=== PATIENT | female | born 1995 | race Two or more races ===

== ENCOUNTER 2021-12-07 11:16 | Observation (INO) ==
--- NOTE | 2021-12-07 11:53 | History & Physical Report ---
Date of Service December 07, 2021 Assessment & Plan (1) Fall: Plan: 26 yo female 23 weeks 5 days WG presents for observation after sustaining a fall. -pt feeling well, physical examination unremarkable, no signs of active bleeding -reassuring FHR/toco tracings -monitor for 4-6 hours, if stable can be discharged -f/u routine OB clinic (2) Supervision of normal intrauterine in primigravida: History of Present Illness Chief Complaint: Fall Primary Care Provider: NO PCP 26 yo female 23 weeks 5 days WG presents for observation after sustaining a fall. She was at work closing a gate and when she turned around to walk towards her car she slipped on a patch of mud forward onto her stomach. She was m inimally able to break her fall with her hands but denies hitting her head. Did not lose consciousness. Denies pain after fall aside from some scrapes on her hands. Did not notice any abdominal bruising. Denies abdominal pain, nausea, vomiting, SOB, chest pain, palpitations. + movement before and after fall. Denies contractions. No vaginal bleeding or leakage of fluid. Tocodynamometry: no uterine contractions FHR: baseline ~140, +spontaneous accelerations, no decelerations, moderate variability Allergies Allergy/AdvReac Type Severity Reaction Status Date / Time No Known Allergies Allergy Verified 11/09/21 16:18 Home Medications Medication Instructions Recorded Confirmed Type albuterol sulfate 90 mcg/actuation 2 puff INHALATION Q6H PRN 10/31/19 11/09/21 History aerosol inhaler calcium carbonate [Tums] PO 08/04/21 11/09/21 History prenat.vits,jeannine,[id number] 1 tab PO DAILY 08/04/21 11/09/21 History simethicone [Mylanta Gas] PO 08/04/21 11/09/21 History doxylamine 10 mg-pyridoxine (vit 1 tab PO DAILY #30 tab 08/10/21 11/09/21 Rx B6) 10 mg tablet,delayed release (Diclegis) ondansetron HCl 4 mg tablet 4 mg PO Q6H PRN #30 tab 08/10/21 11/09/21 Rx Patient History Medical History (Updated 12/07/21 @ 13:16 by Keon Mancera DO) Anemia Asthma GERD (gastroesophageal reflux disease) Umbilical hernia Family History (Updated 08/04/21 @ 14:40 by Lakeshia Guerrero) Father Coronary heart disease COPD (chronic obstructive pulmonary disease) Grandmother Heart disease Grandfather (Paternal) Cancer Social History (Updated 08/04/21 @ 14:41 by Lakeshia Guerrero) Smoking Status: Never smoker Hx Alcohol Use: No Hx Substance Use: No Preferred Language: French marital status: marital status details: [place] (30) [phone] Current Living Situation: Spouse Current Living Situation Comment: lives with spouse, 2 cats, 1 dragon, spouse to change litter. current occupational status: unemployed Feels Safe at Home: Yes Review of Systems All systems reviewed & are unremarkable except as noted in HPI & below Physical Exam Physical Exam: General: Alert, oriented, no acute distress Cardiac: Regular rate and rhythm, normal S1, S2. No murmurs appreciated. Respiratory: Clear to auscultation b/l with good air flow entry, symmetric chest rise and fall. No wheezes or crackles. No increased work of breathing or accessory muscle use Abdomen: Gravid, soft, nontender. No guarding or CVA tenderness. No ecchymosis noted. Skin: Mild new scrapes on bilateral palms Extremities: Warm, dry, well-perfused with capillary refill <2s b/l. No lower extremity edema, erythema or swelling. Negative Rodolfo's sign b/l. Results & Data ([facility]) Vital Signs (Past 12 Hours) Vital Signs Pulse BP 12/07/21 11:26 70 127/63 Supervising Physician Co-Signing Physician Notes Resident Physician Supervision Note: I interviewed and examined the patient. Discussed with Dr. Mancera and agree with findings and plan as documented in the note. Any exceptions or clarifications are listed here: iup at 23 5/7 weeks with fall with direct abd trauma. Patient notes no pain, cramping of bleeding. Rh+. Given periviable, plan to monitor until 6 hours s/p fall. No evidence of trauma to the abdomen. fht reassuring for 23+ weeks with baseline 145 with mod variability, small accels, no decels. Documented By: Simin Espinosa MD, FACOG Resident Activity Tracking Resident Involvement: Resident Care Provided Care Provided: OB Delivery
--- NOTE | 2021-12-08 14:33 | Discharge Summary ---
Date of Service December 08, 2021 Admission HPI Per Admitting Provider 26 yo female 23 weeks 5 days WG presents for observation after sustaining a fall. She was at work closing a gate and when she turned around to walk towards her car she slipped on a patch of mud forward onto her stomach. She was minimally able to break her fall with her hands but denies hitting her head. Did not lose consciousness. Denies pain after fall aside from some scrapes on her hands. Did not notice any abdominal bruising. Denies abdominal pain, nausea, vomiting, SOB, chest pain, palpitations. + movement before and after fall. Denies contractions. No vaginal bleeding or leakage of fluid. Tocodynamometry: no uterine contractions FHR: baseline ~140, +spontaneous accelerations, no decelerations, moderate variability Hospital Course (1) Fall: (2) Supervision of normal intrauterine in primigravida: Patient was monitored up and until 6 hours s/p fall. heart tones remained reassuring with good variability and even small accels. the patient had no bleeding, cramping or pain noted. She is Rh+. Patient was reasurred and d/c to home. Coding Level of Care Code D/C DAY MANAGEMENT <30 MINS Diagnoses Fall W19.XXXA Supervision of normal intrauterine in primigravida Z34.00
== END 2021-12-07 15:10 | disposition home or self-care (01) ==
LOC: OPB 11:16 → 4S1 11:18 → INTOOBSV 11:41 → 4S1 11:41

== ENCOUNTER 2022-04-03 18:43 | Inpatient (IN) ==
[2022-04-03] MEDS ORDERED: LIDOCAINE 1% LOCAL 20 ML VIAL INFIL PRN (20:01)
[2022-04-03] MEDS ORDERED: OXYTOCIN 30 UNITS/500 ML BAG IV PRN (20:01)
[2022-04-03 20:33] LABS: Hematocrit (blood only) 34.2 % (34.1-44.9); Hemoglobin 11.9 g/dl (12.0-16.0); Mean Corpuscular Hgb Conc 34.8 g/dL (32.0-36.0); Mean Corpuscular Volume 83.4 fL (80.0-100.0); Platelet Count 278 K/uL (130-400); RDW Coefficient of Variation 13.2 % (11.5-14.5); RDW Standard Deviation 39.4 fL (36.4-46.3); White Blood Count 11.21 K/ul (4.8-10.8)
--- NOTE | 2022-04-03 20:41 | History & Physical Report ---
Date of Service April 03, 2022 Assessment & Plan (1) Gestational diabetes: Plan: Patient came in for labor check while here membranes ruptured spontaneously the patient is closed although christine every 3 to 4 minutes records reviewed patient will be admitted Admission and Anticipated Discharge Date Admission Date: April 03, 2022 History of Present Illness Primary Care Provider: NO PCP Estimated Delivery Date Method Current WG Current Estimate 03/31/22 Ultrasound #1 40w 0d Other Estimates 03/25/22 LMP (Certain) 40w 6d LMP: 06/18/21 : 1 Full term: 0 Premature: 0 Total Number of Induced Abortions: 0 Total Number of Spontaneous Abortions: 0 Ectopics: 0 Multiple births: 0 Number of Living Children: 0 and Delivery Plans Covid Vaccine #1 09/11/20 (J&J) COVID+ 06/2022, rec'd MABs Flu shot given 03/10/22 SB Obesity BMI 35-39 At Beginning of *Growth US at 32wks--38% *NSTs @ 36wks weekly Asthma - inhaler PRN Gestational Diabetes AC u/s's q 4 weeks Allergies Allergy/AdvReac Type Severity Reaction Status Date / Time No Known Allergies Allergy Verified 03/31/22 09:21 Home Medications Medication Instructions Recorded Confirmed Type albuterol sulfate 90 mcg/actuation 2 puff inhalation Q6H PRN 10/31/19 04/03/22 History aerosol inhaler Shortness Of Breath Or Wheezing prenat.vits,jeannine,[id number] 1 tab PO DAILY 08/04/21 04/03/22 History breast pump #1 ea 12/09/21 03/31/22 Rx acetone (urine) test (Ketone Urine #50 ea 02/06/22 03/31/22 Rx Test strips) blood sugar diagnostic (OneTouch #150 ea 02/06/22 03/31/22 Rx Verio test strips) lancets 33 gauge (OneTouch Delica #150 ea 02/06/22 03/31/22 Rx Lancets) omeprazole 20 mg tablet,delayed 20 mg PO DAILY 03/29/22 04/03/22 History release Patient History Medical History Anemia Asthma GERD (gastroesophageal reflux disease) Umbilical hernia Family History Father Coronary heart disease COPD (chronic obstructive pulmonary disease) Grandmother Heart disease Grandfather (Paternal) Cancer Social History Smoking Status: Never smoker Hx Alcohol Use: No Hx Substance Use: No Preferred Language: Urdu Communication Ability: Effective Sped Teacher Required: No Beliefs That Will Affect Care: None marital status: marital status details: [place] (30) [phone] Current Living Situation: Spouse Current Living Situation Comment: , 2 cats, 1 bearded dragon current occupational status: unemployed Other Information That Helps Us Care for You: No Feels Safe at Home: Yes Safety Concerns: Feels Safe At This Time Assistive Devices: Contacts and Glasses Results & Data ([facility]) Vital Signs (Past 12 Hours) Vital Signs Temp Pulse Resp BP 04/03/22 20:01 98.6 F 04/03/22 19:59 96 H 134/78 04/03/22 19:04 18 04/03/22 19:04 98.4 F 18 04/03/22 19:17 93 H 127/70 04/03/22 18:56 98.4 F Coding Level of Care Code None Diagnoses Gestational diabetes O24.419
[2022-04-03] MEDS ORDERED: BUTORPHANOL TARTRATE 1 MG/ML VIAL IV PRN (23:54)
[2022-04-04] MEDS ORDERED: OXYTOCIN 30 UNITS/500 ML BAG IV PRN ×2 (00:01→15:53)
[2022-04-04] MEDS: LACTATED RINGER'S 1,000 ML IV PRN ×4 (00:24→14:00)
[2022-04-04] MEDS ORDERED: ePHEDrine sulfate 50 MG/ML AMP ONE (01:19)
[2022-04-04] MEDS ORDERED: SODIUM CHLORIDE 0.9% INJ 10 ML VIAL ONE (01:20)
[2022-04-04] MEDS ORDERED: fentaNYL 2MCG/ML ROPIVACAINE 1.25MG/ML 100 ML BAG EPI ONE (01:20)
[2022-04-04] MEDS ORDERED: fentaNYL citrate 100 MCG/2 ML VIAL ONE (01:20)
[2022-04-04] MEDS ORDERED: BUPIVACAINE 0.25% 30 ML VIAL ONE (01:20)
[2022-04-04] MEDS ORDERED: LIDOCAINE 2%/EPINEPHRINE 1:200,000 20 ML SDV ONE (01:20)
[2022-04-04] MEDS ORDERED: ePHEDrine sulfate 50 MG/ML AMP IV PRN (01:23)
[2022-04-04] MEDS ORDERED: diphenhydrAMINE 50 MG/ML VIAL IV PRN (01:23)
[2022-04-04] MEDS ORDERED: ONDANSETRON INJ 2 MG/ML 2 ML VIAL IV PRN (01:23)
[2022-04-04] MEDS ORDERED: NALOXONE HCL 0.4 MG/1 ML VIAL/CARP IV PRN (01:23)
[2022-04-04] MEDS ORDERED: NALOXONE HCL 1 MG in SODIUM CHLORIDE 0.9% 1000ML 1,000 ML IV PRN (01:23)
[2022-04-04] MEDS ORDERED: NALBUPHINE HCL INJ 10 MG/ML AMP IV PRN (01:23)
--- NOTE | 2022-04-04 01:23 | Anesthesiology Consultation ---
Date of Service April 04, 2022 Assessment & Plan ASA ASA3 Proposed Anesthesia Anesthesia Type: Labor Epidural Risk / Benefits Reviewed With: PT / POA / Parent / Guardian, Accepts Plan and Informed Consent Obtained History Height/Weight Height: 5 ft 7 in Weight: 117.118 kg Allergies Allergy/AdvReac Type Severity Reaction Status Date / Time No Known Allergies Allergy Verified 03/31/22 09:21 Medications Home Medications Medication Instructions Recorded Confirmed Last Taken albuterol sulfate 90 mcg/actuation 2 puff inhalation Q6H PRN 10/31/19 04/03/22 Unknown aerosol inhaler Shortness Of Breath Or Wheezing prenat.vits,jeannine,[id number] 1 tab PO DAILY 08/04/21 04/03/22 04/03/22 08:00 breast pump #1 ea 12/09/21 03/31/22 Unknown acetone (urine) test (Ketone Urine #50 ea 02/06/22 03/31/22 Unknown Test strips) blood sugar diagnostic (OneTouch #150 ea 02/06/22 03/31/22 Unknown Verio test strips) lancets 33 gauge (OneTouch Delica #150 ea 02/06/22 03/31/22 Unknown Lancets) omeprazole 20 mg tablet,delayed 20 mg PO DAILY 03/29/22 04/03/22 04/03/22 08:00 release Active Medications Generic Name Dose Route Start Last Admin Trade Name Freq PRN Reason Stop Dose Admin Butorphanol Tartrate 1 mg 04/03/22 23:54 04/04/22 01:01 Butorphanol Tartrate 1 Mg/Ml Vial IV 05/03/22 23:53 1 mg Q2HWA PRN Administration Pain Lactated Ringer's 1,000 mls @ 125 mls/hr 04/03/22 20:01 04/04/22 02:00 Lr IV 04/05/22 20:00 125 mls/hr .Q8H PRN Titration L&D Protocol Protocol Oxytocin 30 units in 500 mls @ 3 mls/hr 04/04/22 00:01 04/04/22 02:03 Pitocin IV 04/06/22 00:00 0.18 units/hr .Q24H PRN 3 mls/hr Labor Induction/Augmentation Titration Protocol 0.18 UNITS/HR Past Medical History Medical History Anemia Asthma GERD (gastroesophageal reflux disease) Umbilical hernia Exercise / Class Metabolic Activity II 4-5 Yardwork/Stairs/Walk up hill Past Family History Family History Father Coronary heart disease COPD (chronic obstructive pulmonary disease) Grandmother Heart disease Grandfather (Paternal) Cancer Past Anesthesia History No Hx of Anesthesia Complications and No Family Hx of Anesthesia Complications History of PONV No Hx of PONV and No Hx of Motion Sickness Social History Smoking Status: Never smoker Hx Alcohol Use: No Hx Substance Use: No substance use type: does not use Review of Systems denies fever/cough/ colds/ chest pain/ SOB/ TIM denies TIM Physical Exam Vital Signs Last Vital Signs Temp 36.8 C 04/03/22 23:50 Pulse 85 04/04/22 02:13 Resp 18 04/03/22 23:50 BP 115/58 L 04/04/22 02:13 Pulse Ox 97 04/04/22 02:12 ENMT Mouth: no TMJ abnormality and no dentition abnormality Thyromental Distance: > or= 3.5 Finger Breadths Mallampati Class: II Neck neck extension not limited Respiratory normal respiratory effort; no respiratory distress Auscultation: lungs clear to auscultation bilaterally Cardiovascular Rate/Rhythm: regular rate and regular rhythm Neurologic moves all extremities Psychiatric Orientation: alert and oriented x 3 Testing Laboratory Results 04/03/22 20:17
--- NOTE | 2022-04-04 06:10 | Labor Progress Brief Note ---
Date of Service April 04, 2022 Patient requested epidural she is 4 cm we initially tried Pitocin as she had spontaneously ruptured however the baby did not tolerate this early dose of Pitocin. We took a break from this and the tracing was category 1 because her cervix is 4 cm over 2 checks although distended 90% we will restart Pitocin low- dose Assessment & Plan Admission and Anticipated Discharge Date Admission Date: April 03, 2022 Results & Data ([facility]) Vital Signs (Past 12 Hours) Vital Signs Temp Pulse Resp BP Pulse Ox 04/04/22 04:02 98.2 F 16 04/03/22 22:50 98.2 F 18 04/04/22 05:59 16 04/04/22 05:59 98.1 F 16 04/04/22 06:03 61 127/75 04/04/22 06:02 61 99 04/04/22 05:57 74 99 04/04/22 05:52 72 100 04/04/22 05:47 99 04/04/22 05:47 65 04/04/22 05:47 69 141/69 H 04/04/22 05:42 76 99 04/04/22 05:37 55 L 97 04/04/22 05:32 97 04/04/22 05:32 61 04/04/22 05:32 60 135/68 04/04/22 01:54 18 04/04/22 01:54 18 04/04/22 02:15 16 04/04/22 02:15 16 04/04/22 02:45 16 04/04/22 02:45 16 04/04/22 03:15 16 04/04/22 03:15 16 04/04/22 03:45 16 04/04/22 03:45 16 04/04/22 04:15 16 04/04/22 04:15 16 04/04/22 04:45 16 04/04/22 04:45 16 04/04/22 05:15 16 04/04/22 05:15 16 04/04/22 05:27 54 L 97 04/04/22 05:22 63 97 04/04/22 05:17 54 L 97 04/04/22 05:18 52 L 136/69 04/04/22 05:12 60 98 04/04/22 05:07 60 98 04/04/22 05:02 55 L 97 04/04/22 05:03 54 L 134/63 04/04/22 04:57 60 97 04/04/22 04:52 54 L 98 04/04/22 04:47 98 04/04/22 04:47 63 04/04/22 04:47 60 131/67 04/04/22 04:42 59 L 97 04/04/22 04:37 62 96 04/04/22 04:32 97 04/04/22 04:32 57 L 04/04/22 04:32 57 L 133/66 04/04/22 04:27 67 96 04/04/22 04:22 66 96 04/04/22 04:17 57 L 130/64 96 04/04/22 04:12 59 L 97 04/04/22 04:07 65 96 04/04/22 04:03 56 L 131/66 04/04/22 04:02 56 L 96 04/04/22 03:57 65 97 04/04/22 03:52 68 99 04/04/22 03:47 96 04/04/22 03:47 99 H 04/04/22 03:47 67 126/63 04/04/22 03:42 83 97 04/04/22 03:40 67 137/63 04/04/22 03:37 78 98 04/04/22 03:32 95 04/04/22 03:32 61 04/04/22 03:32 64 97/48 L 04/04/22 03:27 61 95 04/04/22 03:22 58 L 96 04/04/22 03:21 63 94 04/04/22 03:19 66 91/44 L 04/04/22 03:17 75 97 04/04/22 03:12 64 96 04/04/22 03:07 65 97 04/04/22 03:02 71 98/53 L 97 04/04/22 02:26 16 04/04/22 02:26 16 04/04/22 01:59 16 04/04/22 01:59 16 04/04/22 02:57 68 96 04/04/22 02:52 71 96 04/04/22 02:47 98 04/04/22 02:47 68 04/04/22 02:47 66 131/66 04/04/22 02:01 16 04/04/22 02:01 98.2 F 16 04/04/22 02:42 71 99 04/04/22 02:37 77 98 04/04/22 02:32 81 98 04/04/22 02:30 96 H 140/72 04/04/22 02:29 127 H 90 04/04/22 02:27 80 98 04/04/22 02:24 71 125/58 L 04/04/22 02:22 79 97 04/04/22 02:17 81 97 04/04/22 02:13 85 115/58 L 04/04/22 02:12 95 H 97 04/04/22 02:08 95 H 121/65 04/04/22 02:07 93 H 16 97 04/04/22 02:02 98 H 118/64 96 04/04/22 02:00 80 119/63 04/04/22 01:58 90 111/66 04/04/22 01:57 89 124/62 97 04/04/22 01:55 80 164/67 H 04/04/22 01:52 71 98 04/04/22 01:53 103 H 93 04/04/22 01:47 96 04/04/22 01:47 64 04/04/22 01:47 68 94 04/04/22 01:15 67 119/64 04/04/22 00:15 56 L 117/74 04/03/22 23:50 18 04/03/22 23:50 98.2 F 18 04/03/22 22:50 75 118/75 04/03/22 20:01 98.6 F 04/03/22 19:59 96 H 134/78 04/03/22 19:04 18 04/03/22 19:04 98.4 F 18 04/03/22 19:17 93 H 127/70 04/03/22 18:56 98.4 F Coding Level of Care Code None
[2022-04-04] MEDS: fentaNYL 2MCG/ML ROPIVACAINE 1.25MG/ML 100 ML BAG EPI PRN ×3 (09:05→14:20)
--- NOTE | 2022-04-04 12:42 | Labor Progress Brief Note ---
Date of Service April 04, 2022 Subjective Feeling some more pain on L side and back Assessment & Plan (1) PROM (premature rupture of membranes): Plan: 26 yo G1 at 40 4/7 wga admitted w/ prom VSS Fetus cat 2, reassuring, will reposition Labor - pit at 5, progression noted from last exam. Ok to continue augmentation with reassuring cat 2 [address] neg epid[address] in place Admission and Anticipated Discharge Date Admission Date: April 03, 2022 Physical Exam Genitourinary: Manual OB Exam: + cervical dilation 5 cm, + cervical effacement 90% and + station 0 OB Exam Monitor Tracing: + external FHT monitor used, + external uterine monitor used and + category II (140/mod/+accel/intermittent variables and early) Results & Data ([facility]) Vital Signs (Past 12 Hours) Vital Signs Temp Pulse Resp BP Pulse Ox 04/04/22 07:05 98.2 F 20 04/04/22 04:02 98.2 F 16 04/04/22 12:33 65 100 04/04/22 12:28 65 97 04/04/22 12:23 67 100 04/04/22 12:18 63 100 04/04/22 12:13 72 100 04/04/22 12:08 78 100 04/04/22 12:03 69 100 04/04/22 12:02 75 129/62 04/04/22 11:58 70 100 04/04/22 11:57 66 84 L 04/04/22 11:53 93 H 97 04/04/22 11:51 76 85 L 04/04/22 11:48 56 L 97 04/04/22 11:47 73 137/79 04/04/22 11:43 70 100 04/04/22 11:38 68 100 04/04/22 11:33 57 L 99 04/04/22 11:32 67 133/72 04/04/22 11:28 67 97 04/04/22 11:23 69 100 04/04/22 11:18 63 100 04/04/22 11:17 59 L 134/70 04/04/22 11:13 70 99 04/04/22 11:08 69 99 04/04/22 11:03 67 100 04/04/22 11:00 18 04/04/22 11:00 18 04/04/22 11:02 72 127/71 04/04/22 10:58 77 99 04/04/22 10:53 79 98 04/04/22 10:52 66 88 L 04/04/22 10:48 62 99 04/04/22 10:47 54 L 100/52 L 04/04/22 10:43 53 L 98 04/04/22 10:38 58 L 99 04/04/22 10:33 56 L 98 04/04/22 10:32 53 L 96/53 L 04/04/22 10:28 54 L 98 04/04/22 10:23 55 L 98 04/04/22 10:18 54 L 99/55 L 98 04/04/22 10:00 20 04/04/22 10:00 20 04/04/22 10:13 54 L 99 04/04/22 10:08 57 L 99 04/04/22 10:03 61 100 04/04/22 10:02 68 101/57 L 04/04/22 09:58 69 99 04/04/22 09:53 62 99 04/04/22 09:48 71 100 04/04/22 09:47 64 103/57 L 04/04/22 09:45 61 103/52 L 04/04/22 09:43 77 100 04/04/22 09:38 67 100 04/04/22 09:33 73 100 04/04/22 09:32 68 93 04/04/22 09:28 72 99 04/04/22 09:27 67 92 04/04/22 09:23 72 94 04/04/22 09:00 18 04/04/22 09:00 18 04/04/22 09:20 59 L 91 04/04/22 09:18 62 99 04/04/22 09:17 55 L 95/51 L 04/04/22 09:13 58 L 100 04/04/22 09:08 73 99 04/04/22 09:06 86 92 04/04/22 09:03 75 100 04/04/22 09:02 68 123/75 04/04/22 08:58 63 98 04/04/22 08:53 71 99 04/04/22 08:48 61 99 04/04/22 08:47 67 123/74 04/04/22 08:43 64 100 04/04/22 08:38 79 99 04/04/22 08:33 69 123/72 98 04/04/22 08:28 73 99 04/04/22 08:23 104 H 99 04/04/22 08:22 73 92 04/04/22 08:18 65 97 04/04/22 08:16 60 106/56 L 04/04/22 08:13 61 97 04/04/22 08:00 16 04/04/22 08:00 16 04/04/22 08:08 66 97 04/04/22 08:03 58 L 108/57 L 98 04/04/22 07:58 57 L 98 04/04/22 07:53 63 99 04/04/22 07:48 58 L 98 04/04/22 07:47 57 L 109/57 L 04/04/22 07:43 57 L 98 04/04/22 07:38 61 98 04/04/22 07:30 20 04/04/22 07:30 20 04/04/22 07:33 63 98 04/04/22 07:32 60 106/59 L 04/04/22 07:28 67 99 04/04/22 07:23 58 L 98 04/04/22 07:18 65 99 04/04/22 07:17 59 L 109/56 L 04/04/22 07:13 57 L 98 04/04/22 07:08 73 99 04/04/22 07:05 79 94 04/04/22 07:03 59 L 98 04/04/22 07:02 61 124/65 04/04/22 06:58 65 98 04/04/22 06:53 61 99 04/04/22 06:48 58 L 99 04/04/22 06:47 59 L 126/63 04/04/22 06:43 55 L 100 04/04/22 06:38 60 99 04/04/22 06:29 16 04/04/22 06:29 16 04/04/22 06:33 100 04/04/22 06:33 58 L 04/04/22 06:33 56 L 128/61 04/04/22 06:27 61 99 04/04/22 06:22 59 L 99 04/04/22 06:17 61 132/69 99 04/04/22 06:12 80 99 04/04/22 06:10 77 92 04/04/22 06:07 65 96 04/04/22 05:59 16 04/04/22 05:59 98.1 F 16 04/04/22 06:03 61 127/75 04/04/22 06:02 61 99 04/04/22 05:57 74 99 04/04/22 05:52 72 100 04/04/22 05:47 99 04/04/22 05:47 65 04/04/22 05:47 69 141/69 H 04/04/22 05:42 76 99 04/04/22 05:37 55 L 97 04/04/22 05:32 97 04/04/22 05:32 61 04/04/22 05:32 60 135/68 04/04/22 01:54 18 04/04/22 01:54 18 04/04/22 02:15 16 04/04/22 02:15 16 04/04/22 02:45 16 04/04/22 02:45 16 04/04/22 03:15 16 04/04/22 03:15 16 04/04/22 03:45 16 04/04/22 03:45 16 04/04/22 04:15 16 04/04/22 04:15 16 04/04/22 04:45 16 04/04/22 04:45 16 04/04/22 05:15 16 04/04/22 05:15 16 04/04/22 05:27 54 L 97 04/04/22 05:22 63 97 04/04/22 05:17 54 L 97 04/04/22 05:18 52 L 136/69 04/04/22 05:12 60 98 04/04/22 05:07 60 98 04/04/22 05:02 55 L 97 04/04/22 05:03 54 L 134/63 04/04/22 04:57 60 97 04/04/22 04:52 54 L 98 04/04/22 04:47 98 04/04/22 04:47 63 04/04/22 04:47 60 131/67 04/04/22 04:42 59 L 97 04/04/22 04:37 62 96 04/04/22 04:32 97 04/04/22 04:32 57 L 04/04/22 04:32 57 L 133/66 04/04/22 04:27 67 96 04/04/22 04:22 66 96 04/04/22 04:17 57 L 130/64 96 04/04/22 04:12 59 L 97 04/04/22 04:07 65 96 04/04/22 04:03 56 L 131/66 04/04/22 04:02 56 L 96 04/04/22 03:57 65 97 04/04/22 03:52 68 99 04/04/22 03:47 96 04/04/22 03:47 99 H 04/04/22 03:47 67 126/63 04/04/22 03:42 83 97 04/04/22 03:40 67 137/63 04/04/22 03:37 78 98 04/04/22 03:32 95 04/04/22 03:32 61 04/04/22 03:32 64 97/48 L 04/04/22 03:27 61 95 04/04/22 03:22 58 L 96 04/04/22 03:21 63 94 04/04/22 03:19 66 91/44 L 04/04/22 03:17 75 97 04/04/22 03:12 64 96 04/04/22 03:07 65 97 04/04/22 03:02 71 98/53 L 97 04/04/22 02:26 16 04/04/22 02:26 16 04/04/22 01:59 16 04/04/22 01:59 16 04/04/22 02:57 68 96 04/04/22 02:52 71 96 04/04/22 02:47 98 04/04/22 02:47 68 04/04/22 02:47 66 131/66 04/04/22 02:01 16 04/04/22 02:01 98.2 F 16 04/04/22 02:42 71 99 04/04/22 02:37 77 98 04/04/22 02:32 81 98 04/04/22 02:30 96 H 140/72 04/04/22 02:29 127 H 90 04/04/22 02:27 80 98 04/04/22 02:24 71 125/58 L 04/04/22 02:22 79 97 04/04/22 02:17 81 97 04/04/22 02:13 85 115/58 L 04/04/22 02:12 95 H 97 04/04/22 02:08 95 H 121/65 04/04/22 02:07 93 H 16 97 04/04/22 02:02 98 H 118/64 96 04/04/22 02:00 80 119/63 04/04/22 01:58 90 111/66 04/04/22 01:57 89 124/62 97 04/04/22 01:55 80 164/67 H 04/04/22 01:52 71 98 04/04/22 01:53 103 H 93 04/04/22 01:47 96 04/04/22 01:47 64 04/04/22 01:47 68 94 04/04/22 01:15 67 119/64 Coding Level of Care Code None Diagnoses PROM (premature rupture of membranes) O42.90
[2022-04-04] MEDS ORDERED: NURSING L&D Epidural Breakthrough Pain Update ONE (14:27)
[2022-04-04] MEDS ORDERED: HYDROCORTISONE ACETATE 25 MG SUPP PR PRN (15:53)
[2022-04-04] MEDS ORDERED: bisacodyL 10 MG SUPP PR PRN (15:53)
[2022-04-04] MEDS ORDERED: DIPHTHERIA/TETANUS/PERTUSSIS 0.5 ML SYR/VIAL IM ONE (15:53)
[2022-04-04] MEDS ORDERED: ACETAMINOPHEN 325 MG TAB PO PRN (15:53)
[2022-04-04] MEDS ORDERED: BENZOCAINE 20% AER SPR 82.5 GM CAN EXT PRN (15:53)
--- NOTE | 2022-04-04 15:59 | Delivery Summary ---
Vaginal Delivery Summary Date of Service April 04, 2022 Vaginal Delivery Summary [facility] PREOPERATIVE DIAGNOSIS: 1. Single intrauterine at 40 4/7 wga 2. SROM 3. Labor 4. A1GDM POSTOPERATIVE DIAGNOSIS: 1. Single intrauterine at 40 4/7 wga 2. SROM 3. Labor 4. A1GDM 5. Delivered PROCEDURE: 1. Normal spontaneous vaginal delivery. SURGEON: Caitlyn Rivers MD ANESTHESIA: Epidural. ESTIMATED BLOOD LOSS: 300 mL FLUIDS: Continuous LR. URINE OUTPUT: None. COMPLICATIONS: None. CONDITION: Stable. INDICATIONS: 26 yo G1 at 40 4/7 wga presented in labor this morning and had SROM shortly after arrival. She was started on pitocin and received an epidural for pain control. Pitocin did have to be stopped at one point due to decel but was able to be restarted. She continued to progress to complete and desired to push. FINDINGS: A viable female , weight pending with Apgars of 8 and 9 at 1 and 5 minutes respectively. SPECIMEN: Cord blood, placenta OPERATIVE REPORT: The patient progressed to 10 cm, 100% effaced and +2 station, pushed over intact perineum with anesthesia to deliver a viable female , weight and Apgars as above. Head of delivered in CARLIE position. No nuchal cord was present. Body and shoulders were delivered without difficulty. was delivered to maternal abdomen and nursing staff. Delayed cord clamping was performed for 60 seconds. Cord was clamped and cut. Cord blood was obtained. Placenta delivered spontaneously intact with 3-vessel cord. IV oxytocin and fundal massage were given for excellent hemostasis. Vagina, cervix, perineum, and placenta were inspected. Hemostatic abrasions were noted at left introitus and clitoris but not needed to be repaired. Sponge and needle counts correct x2. No sponges were left behind. Mother and stable in immediate period. [facility] Vaginal Delivery Charge Vaginal Delivery Codes: 74062 global code for the antepartum, delivery, and post- Delivery Type Details: [facility]
[2022-04-04] MEDS: IBUPROFEN 600 MG TAB PO PRN (17:24)
--- NOTE | 2022-04-04 17:38 | Anesthesia Procedure Note ---
Date of Service April 04, 2022 Anesthesia Post Epidural Note Vital Signs Vital Signs: Temp Pulse Resp BP Pulse Ox 37.4 C 64 16 131/68 85 L 04/04/22 15:55 04/04/22 17:25 04/04/22 17:12 04/04/22 17:25 04/04/22 15:52 Pain Intensity Bilateral Abdomen: Pain Intensity: 3 Lower Back: Pain Intensity: 3 Notes Mental Status: alert / awake / arousable and participated in evaluation Nausea / Vomiting: adequately controlled Pain: adequately controlled Airway Patency, RR, SpO2: stable & adequate BP & HR: stable & adequate Hydration State: stable & adequate Neuraxial Anesthesia: was administered and sensory block is resolving Anesthetic Complications: no major complications apparent and Pt Satisfied with anesthetic care Epidural: Removed without complications and With tip intact
[2022-04-04] MEDS: DOCUSATE SODIUM 100 MG CAP PO SCH (20:35)
[2022-04-05] MEDS: IBUPROFEN 600 MG TAB PO PRN ×4 (00:21→19:53)
--- NOTE | 2022-04-05 05:54 | Obstetrical Progress Note ---
Date of Service <Felicitas BlancasDO [place] - Last Filed: 04/05/22 06:29> April 05, 2022 Assessment & Plan <Felicitas BlancasDO [place] - Last Filed: 04/05/22 06:29> (1) care following vaginal delivery: Patient is PPD 1 s/p and doing well. - Eating well, voiding well, ambulating well - Vitals reviewed and within normal limits - Pain well controlled with analgesics - OOB, ambulation, diet progression as tolerated - Encouraged pt to monitor bleeding and watch for dizziness or lightheadedness with standing/sitting - Blood type: B+, GBS neg, rubella immune - Plan to discharge tomorrow - After discharge, 6 week follow up with Dr[address] Rivers <Caitlyn Rivers MD - Last Filed: 04/05/22 07:15> (1) care following vaginal delivery: Subjective <Felicitas BlancasDO [place] - Last Filed: 04/05/22 06:29> Patient is a 26 yo female who is now PPD #1 following spontaneous vaginal delivery at 40+3 weeks. Reports feeling well this morning. She endorses abdominal cramping but 0/10 pain otherwise well managed on analgesics. Voiding without issue. Tolerating regular meals overnight and able to ambulate some. She has passed gas but no bowel movements. Persistent lochia with some improvement this morning. Pt feels that she is bleeding a lot, especially when she sits or stands up. Currently breast feeding. Review of Systems Denies fever, chills, sweats. Denies SOB, difficulty breathing, chest pain, palpitations, and chest pressure. Denies breast pain. Denies dysuria. Denies headache or changes in vision. Physical Exam <Felicitas BlancasDO [place] - Last Filed: 04/05/22 06:29> General: Alert and oriented. No acute distress. CV: Regular rate and rhythm. No murmurs. Respiratory: CTA bilaterally. No rhonchi, wheezes, or crackles. No increased work of breathing. Abdomen: Positive bowel sounds. Soft, nontender, non distended. Uterus: Fundus firm and palpable 2 cm below the umbilicus. Lower extremities: No LE edema. No deep calf pain. Rodolfo's negative bilaterally. Results & Data ([facility]) <Felicitas Rosado DO - Last Filed: 04/05/22 06:29> Vital Signs (Past 12 Hours) Vital Signs Temp Pulse Resp BP Pulse Ox O2 Del Method 04/05/22 04:50 36.5 C 77 16 115/71 Room Air 04/04/22 23:40 36.8 C 65 18 107/70 Room Air 04/04/22 19:35 37.2 C 68 20 115/73 97 Room Air 04/04/22 18:15 37 C 78 18 107/68 98 Room Air <Caitlyn Rivers MD - Last Filed: 04/05/22 07:15> Co-Signing Physician Notes Resident Physician Supervision Note: I interviewed and examined the patient. Discussed with Dr. Rosado and agree with findings and plan as documented in the note. Any exceptions or clarifications are listed here: PP1 s/p , doing well. Is trying a regular pad rather than ice because she is concerned about amount of bleeding in the ice packs, discussed it sounds normal given newly pp status. VSS, exam benign and wnl. Continue routine pp care Documented By: Caitlyn Rivers MD Resident Activity Tracking <Felicitas Rosado DO - Last Filed: 04/05/22 06:29> Resident Involvement: Resident Care Provided Care Provided: OB Delivery
[2022-04-05 06:24] LABS: Hematocrit (blood only) 31.4 % (34.1-44.9); Hemoglobin 10.6 g/dl (12.0-16.0); Mean Corpuscular Hemoglobin 28.9 pg (25.0-34.0); Mean Corpuscular Hgb Conc 33.8 g/dL (32.0-36.0); Mean Corpuscular Volume 85.6 fL (80.0-100.0); Mean Platelet Volume 10.2 fL (9.4-12.3); Platelet Count 201 K/uL (130-400); RDW Coefficient of Variation 13.2 % (11.5-14.5); RDW Standard Deviation 40.9 fL (36.4-46.3); Red Blood Count 3.67 M/uL (3.93-5.22)
[2022-04-05] MEDS: PRENATAL VITAMIN 1 TAB PO SCH (07:51)
[2022-04-05] MEDS: DOCUSATE SODIUM 100 MG CAP PO SCH ×2 (07:51→19:53)
[2022-04-05] MEDS ORDERED: bisacodyL 5 MG TABEC PO SCH (20:00)
[2022-04-06] MEDS: IBUPROFEN 600 MG TAB PO PRN ×2 (03:10→08:48)
--- NOTE | 2022-04-06 06:25 | Obstetrical Progress Note ---
Date of Service <Felicitas Howe DO [place] - Last Filed: 04/06/22 07:02> April 06, 2022 Assessment & Plan <Felicitas BlancasDO [place] - Last Filed: 04/06/22 07:02> (1) care following vaginal delivery: Patient is PPD 2 s/p and doing well. - Eating well, voiding well, ambulating well - Vitals reviewed and within normal limits - Pain well controlled with analgesics - OOB, ambulation, diet progression as tolerated - Blood type: B+, GBS neg, rubella immune - Plan to discharge today - After discharge, 6 week follow up with Dr. Rivers <Lacey Gallagher MD, FACOG - Last Filed: 04/06/22 07:48> (1) care following vaginal delivery: Day #:: 2 Subjective <Felicitas BlancasDO [place] - Last Filed: 04/06/22 07:02> Patient is a 26 yo female who is now PPD #2 following spontaneous vaginal delivery at 40+3 weeks. Reports feeling well this morning. She endorses abdominal cramping and 1.5/10 pain well managed on analgesics. Voiding without issue. Tolerating regular meals overnight and able to ambulate some. She has passed gas and had bowel movements. Persistent lochia with some improvement this morning. Currently breast feeding. Review of Systems Denies fever, chills, sweats. Denies SOB, difficulty breathing, chest pain, palpitations, and chest pressure. Denies breast pain. Denies dysuria. Denies headache or changes in vision. Physical Exam <Felicitas PattersonTali Rosado DO - Last Filed: 04/06/22 07:02> General: Alert and oriented. No acute distress. CV: Regular rate and rhythm. No murmurs. Respiratory: CTA bilaterally. No rhonchi, wheezes, or crackles. No increased work of breathing. Abdomen: Positive bowel sounds. Soft, nontender, non distended. Uterus: Fundus firm and palpable 2 cm below the umbilicus. Lower extremities: No LE edema. No deep calf pain. Rodolfo's negative bilaterally. Results & Data ([facility]) <Felicitas Carley Rosado DO - Last Filed: 04/06/22 07:02> Vital Signs (Past 12 Hours) Vital Signs Temp Pulse Resp BP 04/06/22 00:00 36.5 C 83 18 124/74 04/05/22 20:30 36.6 C 82 18 125/81 <Lacey Gallagher MD, FACOG - Last Filed: 04/06/22 07:48> Co-Signing Physician Notes Resident Physician Supervision Note: I was present with Dr. Rosado during the history and exam. I discussed the case with the resident and agree with the findings and plan as documented in the note. Any exceptions or clarifications are listed here: doing well, ready for dc home, instructions reviewed. f/u 6 wk pp check. breast/rhpos/ri Documented By: Lacey Gallagher MD, FACOG Resident Activity Tracking <Felicitas Rosado, DO - Last Filed: 04/06/22 07:02> Resident Involvement: Resident Care Provided Care Provided: OB Delivery
[2022-04-06 06:37] LABS: Hematocrit (blood only) 32.1 % (34.1-44.9)
[2022-04-06] MEDS: PRENATAL VITAMIN 1 TAB PO SCH (08:48)
[2022-04-06] MEDS: DOCUSATE SODIUM 100 MG CAP PO SCH (08:48)
== END 2022-04-06 13:50 | disposition home or self-care (01) | DRG 807 ==
LOC: OPB 18:43 → 4S1 18:47 → 4E2 04-04 18:08